=== PATIENT | male | born 1985 | race Caucasian/White ===

== ENCOUNTER 2024-08-19 21:06 | Emergency (ER) | payer BC, SELFPAY ==
--- OUTSIDE RECORDS SUMMARY | 2024-08-19 21:07 | XMS_ITS | Clinical Summary ---
Author Organization [employer] [facility] Address [address] [place] [id number] Care Team Providers Care Tufting Machine Fixer Name Role Phone Daniel Go MD Primary Care Provider Allergies No known active allergies Medications methylphenidate 54 mg extended-release tabletIndications: Attention deficit hyperactivity disorder (ADHD), unspecified ADHD type TAKE ONE TABLET BY MOUTH ONCE EVERY DAY 30 Tablet 4 Active methylphenidate (Concerta) 54 mg extended-release tabletIndications: Attention deficit hyperactivity disorder (ADHD), unspecified ADHD type Take 1 Tablet (54 mg) by mouth once daily. 30 Tablet 4 Active Active Problems Problem Noted Date Diagnosed Date Attention deficit hyperactivity disorder (ADHD) 03/23/2021 Family history of prostate cancer 03/23/2021 Immunizations Immunization Administration Dates Next Due COVID-19 VACCINE SPIKEVAX (M ODERNA 50MCG/0.5ML) 12YO+ PFS 11/07/2023 Influenza, IIV4 04/24/2022 Influenza, IIV4 (=>6mos) MDV 02/02/2020,03/27/20 19 Influenza, Injectable, Mdck, Quadrivalent, W/preservative 02/10/2021 Tdap 03/23/2021 Family History Medical History Relation Name Comments Cancer-prostate Father Cancer-colon Maternal Grandfather Cancer Paternal Grandfather Cancer-breast Paternal Grandmother Brain cancer Paternal Uncle 1 Brain cancer Paternal Uncle 2 Leukemia Paternal Uncle 3 Diabetes No Family History Heart attack No Family History Relation Name Status Comments Father Maternal Grandfather Maternal Grandmother Paternal Grandfather Paternal Grandmother Paternal Uncle 1 Paternal Uncle 2 Paternal Uncle 3 Alive Social History Tobacco Use Types Packs/Day Years Used Date Smoking Tobacco: Never Smokeless Tobacco: Never Tobacco Cessation:Counseling Given: No Comments:I smoke about one cigar per year. Alcohol Use Standard Drinks/Week Comments Yes 2 (1 standard drink = 0.6 oz pure alcohol) I will often have wine or beer with dinner on the weekends. PHQ-2 Answer Date Recorded PHQ-2 TOTAL SCORE 1 05/31/2023 Social Connections Answer Date Recorded Do you often feel lonely or isolated from those around you? 0 05/28/2023 Financial Resource Strain Answer Date R ecorded Difficulty of Paying Living Expenses 3 05/28/2023 Difficulty of Paying Living Expenses Not on file 05/28/2023 Food Insecurity Answer Date Recorded Do you worry your food will run out before you are able to buy more? 1 05/28/2023 Transportation Needs Answer Date Record ed Does lack of transportation keep you from medica l appointments? 1 05/28/2023 Does lack of transportation keep you from work, meetings or getting things that you need? 1 05/28/2023 Housing Stability Answer Date Recorded What is your housing situation today? 1 05/28/2023 Utilities Answer Date Recorded Do you have trouble paying f or utilities (for example, heat, electricity, water, phone)? 1 05/28/2023 Sex and Gender Information Value Date Recorded Sex Assigned at Not on file Legal Sex Male 2:55 PM CDT Gender Identity Not on file Sexual Orientation Not on file Obstetrics History Last Filed Vital Signs Vital Sign Reading Time Taken Comments Blood Pressure 117/75 11/07/2023 11:10 AM CDT Pulse 64 11/07/2023 11:10 AM CDT Temperature 36.7 C (98 F) 12/19/2018 3:13 PM CDT Respiratory Rate - - Oxygen Saturation 98% 11/07/2023 11:10 AM CDT Inhaled Oxygen Concentration - - Weight 85 kg (187 lb 8 oz) 11/07/2023 11:10 AM C DT Height 175.3 cm (5' 9) 05/31/2023 8:37 AM ACADEMIC INTERN Body Mass Index 27.69 05/31/2023 8:37 AM ACADEMIC INTERN Plan of Treatment Health Maintenance Due Date Last Done Comments HIV for age 15-65 2001 Hepatitis C screening for age 18-79 2004 COVID-19 vaccine series (6 - 2023- season) 2024 11/07/2023, 02/16/2022, 04/02/2021, Additional history exists BMI (ht and wt on same day) for age 18+ 05/31/2024 05/31/2023, 05/03/2022, 03/23/2021, Additional history exists Depression screening for age 12+ 05/31/2024 05/31/2023, 05/03/2022, 03/23/2021, Additional history exists Influenza Vaccine (Season Ended) 2025 04/24/2022, 02/10/2021, 02/02/2020, Additional history exists Lipids for age 35-44 05/27/2026 05/27/2021 Tetanus booster 03/23/2031 03/23/2021 Tdap Completed 03/23/2021 Pneumococcal series for age 6-49 Aged Out No longer eligible based on patient's age to complete this topic Procedures Procedure Name Priority Date/Time Associated Diagnosis Comments LIPID PANEL W REFLEX MEASURED LDL Routine 05/27/2021 8:12 AM ACADEMIC INTERN Lipid screening from Last 3 Months or Most Recently Relevant to Health Maintenance Results * (ABNORMAL) LIPID PANEL W REFLEX MEASURED LDL (05/27/2021 8:12 AM ACADEMIC INTERN) CHOLESTEROL,TOTAL 204(H) 100 - 199 mg/dL 05/27/2021 3:20 PM ACADEMIC INTERN [facility] TRIGLYCERIDES 32 <150 mg/dL 05/27/2021 3:20 PM ACADEMIC INTERN [facility] HDL CHOLESTEROL 72 >40 mg/dL 3:20 PM ACADEMIC INTERN [facility] NON-HDL CHOLESTEROL 132 <145 mg/dl 05/27/2021 3:20 PM ACADEMIC INTERN [facility] CHOL/HDL RATIO 2.83 <4.50 05/27/2021 3:20 PM ACADEMIC INTERN [facility] LDL CHOLESTEROL 126 <=130 mg/dL 05/27/2021 3:20 PM ACADEMIC INTERN [facility] VLDL CHOLESTEROL 6 <=30 mg/dL 05/27/2021 3:20 PM ACADEMIC INTERN [facility] PROVIDER ORDERED STATUS RANDOM 05/27/2021 3:20 PM ACADEMIC INTERN [facility] Blood BLOOD SPECIMEN / Unknown Venipuncture / Unknown 05/27/2021 8:12 AM ACADEMIC INTERN 05/27/2021 8:14 AM ACADEMIC INTERN us Daniel Go MD CHEMISTRY Final Result [facility] [address] [place] [address], [place] from Last 3 Months or Most Recently Relevant to Health Maintenance Insurance [facility] Care Teams Tufting Machine Fixer Relationship Specialty Start Date End Date Daniel Go MD [address] [place] [address] PCP - General Family Practice 12/19/18
[2024-08-19 21:11] VITALS: BP 143/91; PULSE 99; RESP 16; TEMP 36.5; O2SAT 99; BMI 25.1
--- NOTE | 2024-08-19 21:45 | ED.GENADULT ---
HPI - General Adult General Chief complaint: Chest Pain Stated complaint: Chest pain Time Seen by Provider: 08/19/24 21:20 History of Present Illness HPI narrative: patient with hx of ADHD on methylphenidate , patient takes 54mg daily. patient occasionally has chest pain when his meds are wearing off . about an hour ago he had more severe chest pain that went away then came back then went away then came back. center of chest . patient took 2 325mg aspirin before arrival . no SOB, no radiation of pain. no cardiac hx. describes pain as tight and achy. 39-year-old man presenting to the emergency department with concern of chest pain. Has been taking 54 mg daily of methylphenidate and has experienced chest pain as this meds wear off and then 30-40 minutes of being cranky typically. Dosing was increased from 36-54 mg daily during a graduate program but now that this is done he has maintained same dosing thinking that perhaps he should decrease this. Otherwise seems to tolerate it well. Tonight though that chest tightness an achiness in the middle of his chest lasted for about an hour and thought that should be evaluated. Did take aspirin before arrival. Never been short of breath. No injury. He does work out regularly without difficulty. No early cardiac disease noted in family. Has not sensed rapid heart rate or palpitations. Related Data Home Medications ?Medication ?Instructions ?Recorded ?Confirmed methylphenidate HCl 54 mg 54 mg PO DAILY 08/19/24 08/19/24 tablet,extended release 24 hr (Relexxii) Allergies Allergy/AdvReac Type Severity Reaction Status Date / Time No Known Drug Allergies Allergy Verified 08/19/24 21:17 Review of Systems Status of ROS: Reports: 6 or more systems reviewed and unremarkable except as noted in History and below [facility] Social History Smoking Status: Never smoker Do you use any of these nicotine containing products: None How often do you have a drink containing alcohol: never How often do you have six or more drinks on one occasion: Never AUDIT-C Alcohol total score: 0 Non-prescribed substance use: denies use Exam Narrative: Exam Narrative: Pleasant. NAD. Skin is warm and dry. Well-perfused peripherally. Well muscled. No pain to palpation over the chest. Lungs are clear. Heart in mildly elevated rate in normal rhythm without murmur rub or gallop. 1+ and equal radial pulses. Strong and equal carotid upstroke. No supraclavicular crepitus. No lower extremity edema. Const: Vital Signs, click to edit/add: Vital Signs - 24 hr 08/19/24 21:11 Temperature 97.7 F Pulse Rate [Pulse Oximeter] 99 Respiratory Rate 16 Blood Pressure [Ri ght Upper Arm] 143/91 H Pulse Oximetry 99 Oxygen Delivery Me thod Room Air Documenting provider has reviewed patient's vital signs: yes Course Vital Signs Vital signs: Initial Vital Signs Temperature 97.7 F 08/19/24 21:11 Temperature Source Temporal Artery Scan 08/19/24 21:11 Pulse Rate 99 08/19/24 21:11 Respiratory Rate 16 08/19/24 21:11 Blood Pressure 143/91 H 08/19/24 21:11 Blood Pressure Mean 108 H 08/19/24 21:11 Blood Pressure Position Sitting 08/19/24 21:11 Pulse Oximetry 99 08/19/24 21:11 Oxygen Delivery Method Room Air 08/19/24 21:11 Vital Signs Temperature 97.7 F 08/19/24 21:11 Pulse Rate 99 08/19/24 21:11 Respiratory Rate 16 08/19/24 21:11 Blood Pressure 143/91 H 08/19/24 21:11 Pulse Oximetry 99 08/19/24 21:11 Oxygen Delivery Method Room Air 08/19/24 21:11 Temperature 97.7 F 08/19/24 21:11 Pulse Rate 99 08/19/24 21:11 Respiratory Rate 16 08/19/24 21:11 Blood Pressure 143/91 H 08/19/24 21:11 Pulse Oximetry 99 08/19/24 21:11 Oxygen Delivery Method Room Air 08/19/24 21:11 Medical Decision Making MDM Narrative Medical decision making narrative: Pain is not pleuritic to suggest pneumothorax or pulmonary embolus. No reproducibility to suggest costochondritis. Doubtful ischemic cardiovascular event unless perhaps had also been associated with marked tachycardia which does not sound to have been the case. Known potential side effect of methylphenidate. Would check EKG. Monitoring youth nutritional monitor for time and discussed checking a troponin. This is now about 3 hours post onset. EKG WNL as below. Normal troponins. No further on monitor. See patient discharge plan for further discussion I think your assessment is likely correct; that this is medication effect. You do not appear to to have suffered any cardiac injury here today. We have not seen evidence of an arrhythmia. Still appropriate to return for persistent and increasing/uncontrolled chest pain particularly associated with shortness of breath or nausea or diaphoresis. Sounds like it would be a good idea to contact your primary care provider to discuss medication dosing changes. Lab Data Lab results reviewed: Yes I reviewed the patient's lab results Labs: Lab Results 08/19/24 Range/Units 22:08 POC Troponin I 0.00 L (0.01-0.04) ng/ml ECG Data Attestation: I personally reviewed and interpreted this ECG as follows: (normal sinus rhythm at 61) Discharge Plan Discharge Clinical Impression: Atypical chest pain Patient Disposition: Home w/ Parent or Adult Condition: Improved Instructions: Chest Wall Pain (ED) Additional Instructions: I think your assessment is likely correct; that this is medication effect. You do not appear to to have suffered any cardiac injury here today. We have not seen evidence of an arrhythmia. Still appropriate to return for persistent and increasing/uncontrolled chest pain particularly associated with shortness of breath or nausea or diaphoresis. Sounds like it would be a good idea to contact your primary care provider to discuss medication dosing changes. Activity Level: No Restrictions Discharge Diet: Regular Prescriptions: No Action methylphenidate HCl [Relexxii] 54 mg tablet extended release 24hr 54 mg PO DAILY Follow Up/Referrals: Daniel Go MD [Primary Care Provider] - Stand Alone Forms: [employer] Info Instructions
--- OUTSIDE RECORDS SUMMARY | 2024-08-19 22:20 | XMS_ITS | Clinical Summary ---
Author Organization [employer] [facility] Address [address] [place] [id number] Care Team Providers Care Bee Producer Name Role Phone Daniel Go MD Primary [...] 175.3 cm (5' 9) 05/31/2023 8:37 AM PERSONAL BANKING REPRESENTATIVE Body Mass Index 27.69 05/31/2023 8:37 AM PERSONAL BANKING REPRESENTATIVE Plan of Treatment Health Maintenance Due Date [...] REFLEX MEASURED LDL Routine 05/27/2021 8:12 AM PERSONAL BANKING REPRESENTATIVE Lipid screening from Last 3 Months or Most Recently Relevant to Health Maintenance Results * (ABNORMAL) LIPID PANEL W REFLEX MEASURED LDL (05/27/2021 8:12 AM PERSONAL BANKING REPRESENTATIVE) CHOLESTEROL,TOTAL 204(H) 100 - 199 mg/dL 05/27/2021 3:20 PM PERSONAL BANKING REPRESENTATIVE [facility] TRIGLYCERIDES 32 <150 mg/dL 05/27/2021 3:20 PM PERSONAL BANKING REPRESENTATIVE [facility] HDL CHOLESTEROL 72 >40 mg/dL 3:20 PM PERSONAL BANKING REPRESENTATIVE [facility] NON-HDL CHOLESTEROL 132 <145 mg/dl 05/27/2021 3:20 PM PERSONAL BANKING REPRESENTATIVE [facility] CHOL/HDL RATIO 2.83 <4.50 05/27/2021 3:20 PM PERSONAL BANKING REPRESENTATIVE [facility] LDL CHOLESTEROL 126 <=130 mg/dL 05/27/2021 3:20 PM PERSONAL BANKING REPRESENTATIVE [facility] VLDL CHOLESTEROL 6 <=30 mg/dL 05/27/2021 3:20 PM PERSONAL BANKING REPRESENTATIVE [facility] PROVIDER ORDERED STATUS RANDOM 05/27/2021 3:20 PM PERSONAL BANKING REPRESENTATIVE [facility] Blood BLOOD SPECIMEN / Unknown Venipuncture / Unknown 05/27/2021 8:12 AM PERSONAL BANKING REPRESENTATIVE 05/27/2021 8:14 AM PERSONAL BANKING REPRESENTATIVE us Daniel Go MD CHEMISTRY Final Result [facility] [address] [place] [address], [place] from Last 3 Months or Most Recently Relevant to Health Maintenance Insurance [facility] Care Teams Bee Producer Relationship Specialty Start Date End Date Daniel Go MD [address] [place] [address] PCP - General Family Practice 12/19/18
== END 2024-08-19 22:47 | disposition home or self-care (01) ==
PROVIDERS: Emergency Provider Family Medicine; PCP Family Medicine
DX: R07.89 Other chest pain (principal)
CPT/HCPCS: 84484; 99283; 99284